=== PATIENT | female | born 1995 | race Caucasian/White ===

== ENCOUNTER 2017-10-07 16:04 | Emergency (ER) | payer MEDICAID ==
[2017-10-07 17:43] LABS: BASOPHIL % 0.4 % (0-2); PLATELET COUNT 307 x10^3mcL (130-400); RED CELL DISTRIBUTION WIDTH 13.7 % (11.5-14.5)
[2017-10-07 19:10] VITALS: BP 125/71
== END 2017-10-07 19:10 | disposition home or self-care (01) ==
LOC: ED 16:04
PROVIDERS: Emergency Medicine
DX: N93.9 Abnormal uterine and vaginal bleeding, unspecified (principal)
CPT/HCPCS: 36415

== ENCOUNTER 2018-10-14 21:40 | Emergency (ER) | payer MEDICAID ==
[~2018-10-14] VITALS: Ht 160 cm; Wt 81.3 kg
[2018-10-14 21:47] VITALS: Ht 160 cm; Wt 81.3 kg
[2018-10-14 22:49] LABS: BASOPHIL % 0.4 % (0-2); PLATELET COUNT 285 x10^3mcL (130-400); RED CELL DISTRIBUTION WIDTH 14.9 % (11.5-14.5)
[2018-10-14 22:50] LABS: microscopic required? YES; urine erythrocyte 3+ (NEGATIVE)
[2018-10-14 22:59] LABS: CALCIUM 8.4 mg/dL (8.5-10.1); CARBON DIOXIDE 27.6 mmol/L (21-32); CHLORIDE SERUM 102 mmol/L (98-107); CREATININE SERUM 0.8 mg/dL (0.6-1.0); GFR1 > 60 mL/min; GLUCOSE SERUM 92 mg/dL (74-106); POTASSIUM SERUM 3.5 mmol/L (3.5-5.1); SODIUM SERUM 135 mmol/L (136-145)
[2018-10-14 23:00] LABS: ALBUMIN 3.6 g/dL (3.4-5.0); ALKALINE PHOSPHATASE 76 U/L (46-116); ALT/SGPT 64 U/L (14-59); AST/SGOT 41 U/L (15-37); BILIRUBIN TOTAL 0.17 mg/dL (0.20-1.00); LIPASE 158 IU/L (73-393); TOTAL PROTEIN, SERUM 8.5 g/dL (6.4-8.2)
[2018-10-15 02:13] VITALS: BP 116/65
== END 2018-10-15 02:13 | disposition home or self-care (01) ==
LOC: ED 21:40
PROVIDERS: Emergency Medicine
DX: R10.2 Pelvic and perineal pain (principal); N93.9 Abnormal uterine and vaginal bleeding, unspecified
CPT/HCPCS: J1885; J7030

== ENCOUNTER 2019-10-23 11:22 | Emergency (ER) | payer SELFPAY ==
[~2019-10-23] VITALS: Ht 172.7 cm; Wt 87.1 kg
[2019-10-23 11:54] VITALS: Ht 172.7 cm; Wt 87.1 kg
[2019-10-23 16:17] VITALS: BP 125/78
== END 2019-10-23 16:17 | disposition home or self-care (01) ==
LOC: ED 11:22
DX: S80.11XA Contusion of right lower leg, initial encounter (principal); W22.8XXA Striking against or struck by other objects, initial encounter; Y93.89 Activity, other specified; Y92.89 Other specified places as the place of occurrence of the external cause; Y99.8 Other external cause status